=== PATIENT | male | born 1950 | race Caucasian/White ===

== ENCOUNTER 2017-03-06 12:28 | Emergency (ER) | payer OTHER ==
--- NOTE | 2017-03-06 12:49 | EDPHY ---
H & P Stated Complaint: r sided cp 4 days ago HPI/ROS: CHIEF COMPLAINT: Chest pain HISTORY OF PRESENT ILLNESS: This patient is a 67 year old male with history of CAD and LAD stent placement in 2011 arriving today complaining of intermittent right-sided chest pain onset , four days ago. He is not anticoagulated. 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 One and one half weeks ago, he developed an infected tooth, and is waiting for a root canal procedure. He is currently taking Amoxicillin and was instructed to discontinue his daily 81mg Aspirin. Four days ago, he states he began to feel an intermittent ache in the right side of his chest lasting 5- 10 seconds each time, different from the pain that occurred prior to his stenting procedure in 2011. He notes no change with exertion. He went on a 45 mile bike ride with a hard climb 3 days ago, and states he didn't feel "good", but that there was no associated chest pain. He denies nausea, shortness of breath, pain with breathing, leg or calf pain, or recent trauma. He denies family cardiac history. REVIEW OF SYSTEMS: A ten point review of systems was performed and is negative with the exception of the items mentioned in the HPI. - Personal History Current Tetanus/Diphtheria Vaccine: No - Medical/Surgical History PMH: 1. CAD 2. Stent to left anterior descending 3. Hyperlipidemia (taking a statin) Past medical records reviewed including admission 06/07/12 for chest discomfort. 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 Nonsmoker. 2-3 drinks/ night. Parents in 90s. Mother has hypertension. - Physical Exam Exam: General Appearance: Alert. Vital signs reviewed. HR 50, BP 133/77. Eyes: Pupils equal and round, no conjunctival injection, no discharge. Anicteric. ENT, Mouth: Mucous membranes are moist, no oropharyngeal erythema or edema. Neck: No JVD. No lymphadenopathy, supple. Respiratory: Lungs are clear to auscultation; no wheezes, rales, or rhonchi. Cardiovascular: Bradycardia wth occasional ectopy. No murmur, rub, or gallop. Gastrointestinal: Abdomen is soft and nontender, no masses or organomegaly, bowel sounds normal. Skin: Warm and dry, no rashes on exposed skin, normal color. Back: Nontender to palpation over the thoracolumbar spine. No CVAT. Extremities: No lower extremity edema, no calf tenderness or swelling. Neurological: Alert and oriented. Moving all four extremities easily and equally. Psychiatric: Normal affect. Constitutional: Initial Vital Signs Temperature (C) 36.6 C 03/06/17 12:36 Heart Rate 50 L 03/06/17 12:36 Respiratory Rate 16 03/06/17 12:36 Blood Pressure 133/77 H 03/06/17 12:36 O2 Sat (%) 98 03/06/17 12:36 O2 Delivery Mode Room Air Allergies/Adverse Reactions: Tetanus & Diphthe *RETIRED-06/19/12 [Tetanus & Diphtheria Tox,Adult] Allergy ( Intermediate, Verified 03/06/17 12:35) Other-Enter Comments Tetanus Vaccines and Toxoid [Tetanus] Allergy (Intermediate, Verified 03/06/17 12:35) Other-Enter Comments Home Medications: Medication Instructions Recorded AMOXICILLIN 03/06/17 Atorvastatin Calcium 03/06/17 Medical Decision Making - Diagnostics EKG Interpretation: The 12 lead EKG was interpreted by myself. See hard copy and/or "tracemaster" electronic copy for interpretation. Sinus bradycardia, rate 49. Imaging Results: Two view chest xray reviewed by me in PACS. [facility]. ED Course/Re-evaluation: This patient is a 67 year old male with history of CAD and LAD stent placement in 2011 presenting today with a four day history of intermittent right-sided chest pain. Physical exam is unremarkable. Plan for EKG, chest x-ray, and labs including CBC, CHEM, D-dimer, and troponin. EKG unremarkable with sinus bradycardia, which is normal for the patient (and is noted on his EKG in 2011). Chest x-ray shows no acute processes. Labs unremarkable. Reassessed patient. Plan to discharge home in good condition. Return precautions discussed. He will follow up with Dr. 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 The patient and his are comfortable with this plan. The nature of his pain--fleeting and right sided--is atypical for ACS. It is not similar to what he previously experienced prior to stenting. D-dimer is normal, making PE unlikely, given his lack of risk factors. CXR negative for infiltrate or pneumothorax. No murmur or other signs/symptoms that might suggest endocarditis (recent tooth infection on amoxicillin). He is comfortable returning home and understands the danger signs that should prompt immediate re-evaluation. His pain is likely musculoskeletal. Differential Diagnosis: Chest pain including but not limited to myocardial ischemia, pulmonary embolus, chest wall pain, pleural inflammation and pulmonary infectious causes. - Data Points Laboratory Results: Laboratory Results 03/06/17 12:55 03/06/17 12:55 Departure - Departure Disposition: Home, Routine, Self-Care Clinical Impression: Right-sided chest pain Condition: Good Instructions: Chest Pain (ED) Additional Instructions: 1. Follow up with Dr. Morin on Tuesday as scheduled for continued management of symptoms. 2. Return to the ED for changed or increased chest pain or shortness of breath, dizziness, or other new or concerning symptoms or worsening of condition. Call [phone] if these symptoms occur. Referrals: CRISTINA ERNST [Primary Care Provider] - As per Instructions Romeo Morin MD [Medical Doctor] - As per Instructions Report Scribed for: Julissa Obrien Report Scribed by: Louisa Mendez Date of Report: 03/06/17 Time of Report: 13:13 Physician Review and Approval Statement: 03/06/17 12:49 Portions of this note were transcribed by the medical superintendent. I, Dr. Julissa Obrien, personally performed the history, physical exam, and medical decision- making; and confirmed the accuracy of the information in the transcribed note.
--- NOTE | 2017-03-06 12:53 | CPEKG ---
Heart Rate: 49 RR Interval: 1224 P-R Interval: 176 QRSD Interval: 90 QT Interval: 464 QTC Interval: 419 P [place]: 39 QRS [place]: -62 T Wave [place]: -8 EKG Severity - ABNORMAL ECG - EKG Impression: SINUS BRADYCARDIA EKG Impression: VENTRICULAR PREMATURE COMPLEX EKG Impression: LEFT ANTERIOR FASCICULAR BLOCK EKG Impression: NONSPECIFIC T ABNORMALITIES, INFERIOR LEADS Electronically Signed By: Flora Magdaleno 06-Mar-2017 15:03:38
[2017-03-06 13:11] LABS: % IMMATURE GRANULYOCYTES 0.4 % (0.0-1.1); ABSOLUTE IMMATURE GRANULOCYTES 0.02 10^3/uL (0.00-0.10); ADD DIFF? NO; ADD MORPH? NO; ADD SCAN? NO; ATYPICAL LYMPHOCYTE FLAG 0 (0-99); FRAGMENT RBC FLAG 0 (0-99); HEMATOCRIT 42.8 % (40.0-51.0); HEMOGLOBIN 15.2 g/dL (13.7-17.5); LEFT SHIFT FLG 0 (0-99); LIPEMIA HEMOLYSIS FLAG 90 (0-99); MEAN CELL HEMOGLOBIN 33.9 pg (27.9-34.1); MEAN CELL HEMOGLOBIN CONCENTR. 35.5 g/dL (32.4-36.7); MEAN CELL VOLUME 95.3 fL (81.5-99.8); MEAN PLATELET VOLUME 10.8 fL (8.7-11.7); PLATELET CLUMPS FLAG 0 (0-99); PLATELET COUNT 141 10^3/uL (150-400); RED BLOOD CELL COUNT 4.49 10^6/uL (4.40-6.38); RED CELL DISTRIBUTION WIDTH 11.7 % (11.5-15.2)
[2017-03-06 13:18] LABS: ANION GAP 10 mEq/L (8-16); CARBON DIOXIDE 27 mEq/l (22-31); CHLORIDE 104 mEq/L (97-110); CREATININE 0.9 mg/dL (0.7-1.3); GLOMERULAR FILTRATION RATE > 60; GLUCOSE 94 mg/dL (70-100); POTASSIUM 4.4 mEq/L (3.5-5.2); SODIUM 141 mEq/L (134-144)
[2017-03-06 13:29] LABS: TROPONIN I < 0.012 ng/mL (0-0.034)
[2017-03-06 13:58] VITALS: BP 139/73; PULSE 71; RESP 18; TEMP 98.8; O2SAT 97
== END 2017-03-06 13:57 | disposition home or self-care (01) ==
DX: R07.9 Chest pain, unspecified (principal); I25.10 Atherosclerotic heart disease of native coronary artery without angina pectoris